=== PATIENT | female | born 1950 | race Caucasian/White ===

== ENCOUNTER 2016-09-28 13:40 | Day surgery (SDC) | payer MEDICARE ==
--- NOTE | 2016-09-24 16:33 | HP ---
ADMITTING HISTORY AND PHYSICAL: DATE OF ADMISSION: 09/28/16 AGE: 66 years, female. ADMITTING DIAGNOSES: 1. Left flank pain. 2. Hematuria. 3. Left renal calculi. PLANNED PROCEDURES: Left stent insertion and shock wave lithotripsy of left renal calculi. SURGEON: Dr. Mcnair. ADMITTING HISTORY AND PHYSICAL: Katie Nieves is a 66-year-old lady with a history of recurrent renal calculi. She has had episodic left flank pain and gross hematuria and an ultrasound in my office had revealed an 1.5-cm calculus in the renal pelvis on the left side with mild caliectasis. In addition, she had small bilateral renal calculi. On the corresponding KUB x-ray, I was only able to visualize small bilateral renal calculi and because of this, the ultrasound was subsequently repeated on September 24 and it still confirms a 1.5 -cm calculus in the renal pelvis on the left side. It is possible that the calculus may be a combination of calcium and uric acid, which would explain why it is clearly visible on ultrasound and not quite as clearly visible on the plain x-ray. PAST MEDICAL HISTORY: Significant for: 1. Recurrent renal calculi. 2. Hypothyroidism. 3. Gastroesophageal reflux. MEDICATIONS ON ADMISSION: 1. Synthroid 150 mcg daily. 2. Ranitidine 1 tablet daily. 3. Vitamins. ALLERGIES AND INTOLERANCES: NYSTATIN and ERYTHROMYCIN. PHYSICAL EXAMINATION GENERAL: A pleasant middle-aged lady. VITAL SIGNS: Blood pressure is 120/80, pulse 88 per minute, oxygen saturation 98% on room air. LUNGS: Clear bilaterally. CARDIOVASCULAR EXAM: Regular rate and rhythm. S1, S2. ABDOMEN: Soft with mild left flank tenderness. IMPRESSION: A 66-year-old lady with an 1.5 cm calculus in the left renal pelvis and two additional left renal calculi. Planned procedure is left stent insertion and shock wave lithotripsy of left renal calculi. I have discussed the procedure in detail with Katie including possible risks of bleeding, infection, incomplete fragmentation. If I am not able to visualize the calculi clearly, then I have also explained to her about the possibility of a need for left ureteroscopy and laser lithotripsy. CC: Dr. Ilgesias * [id number]/[facility] #: [id number] [facility]
[~2016-09-28 13:40] MED LIST: Buffered Lidocaine 1% SYR 3ML* 3 ML/SYR SYRINGE INTRADERM ONE; Gentamicin ADULT (*) 160 MG in NS 0.9% 100 ML* 100 ML IVPB ONE
--- NOTE | 2016-09-28 14:09 | RAD ---
Indication: ESWL LEFT renal calculi. Comparison: September 10, 2016 Technique: Supine abdomen. Report: Subtle suggestion of small bilateral renal stones with dominant 0.4 cm stone at level of the nipple cortex of the RIGHT kidney. No suspicious calcifications along the expected course of the ureters. RIGHT pelvic phlebolith noted. Unremarkable paraspinal soft tissue contours. Gallbladder fossa level surgical clips. IMPRESSION: While conspicuity is limited there is suggestion of small bilateral renal stones without significant interval change.
[2016-09-28] MEDS ORDERED: cefTRIAXone(*) 2 GM ADDV.VIAL IVPB ONE (14:25)
[2016-09-28] MEDS ORDERED: Buffered Lidocaine 1% SYR 3ML* 3 ML/SYR SYRINGE ONE (14:25)
[2016-09-28] MEDS ORDERED: Iohexol 180 (CONTRAST) 10 ML SDV IV ONE (15:19)
[2016-09-28] MEDS ORDERED: fentaNYL* 50 MCG/ML 2 ML VIAL (100 MCG VIAL) ONE (16:21)
[2016-09-28] MEDS ORDERED: Propofol* 10 MG/ML 20 ML BTL IV PUSH ONE (16:21)
[2016-09-28] MEDS ORDERED: Lidocaine 2% MPF* 2 ML VIAL ONE (16:21)
[2016-09-28] MEDS ORDERED: Furosemide IV* 10 MG/ML 2 ML VIAL (20 MG) ONE (17:05)
[2016-09-28] MEDS ORDERED: fentaNYL* 50 MCG/ML 2 ML VIAL (100 MCG VIAL) IV PRN (17:08)
[2016-09-28] MEDS ORDERED: oxyCODONE/Acetamin 5/325 MG* TAB ONE (17:57)
[2016-09-28] MEDS ORDERED: Solifenacin(NF) 5 MG TAB PO ONE (18:00)
[2016-09-28] MEDS ORDERED: Phenazopyridine TAB* 100 MG PO ONE (18:00)
[2016-09-28] MEDS ORDERED: Diatrizoate -DILUTE(CONTRAST) 300 ML BOTTLE BLADDER ONE (18:32)
[2016-09-28 18:48] VITALS: BP 148/77
--- NOTE | 2016-09-29 08:03 | OP ---
DATE OF OPERATION: 09/28/15 [facility] DATE OF : 52 SURGEON: Brooks Mcnair MD ANESTHESIOLOGIST: Dr. Mccrary. ANESTHESIA: General. PRE-OP DIAGNOSES: 1. Left flank pain. 2. Large calculus left renal pelvis (seen on ultrasound, difficult to see on x - ray). POST-OP DIAGNOSES: 1. Left flank pain. 2. Large calculus left renal pelvis (seen on ultrasound, difficult to see on x - ray). OPERATIVE PROCEDURE: 1. Cystoscopy, left retrograde, left stent insertion. 2. Shockwave lithotripsy of left renal calculus. COMPLICATIONS: None. STENT USED: 7-Belarusian stent left ureter. POSTOPERATIVE CONDITION: Stable. INDICATIONS: Katie Nieves is a 66-year-old lady with left flank pain and a history of recurrent renal calculi. She was noted to have a 1.5 cm calculus on ultrasound in the left renal pelvis which is difficult to visualize on x-ray. I suspect that this could have a significant uric acid component, and she is now being brought in for treatment of the calculus. FINDINGS: Approximately 1.5 cm calculus left renal pelvis (noted as filling defect on retrograde pyelogram). DESCRIPTION OF PROCEDURE: After induction of general anesthesia, the patient was placed in dorsal lithotomy position. Sequential compression devices were in place and functioning. Initial cystoscopy revealed a normal-appearing bladder. A guidewire was introduced into the left ureter. Left retrograde pyelogram revealed a large filling defect in the left renal pelvis consistent with calculus. The remainder of the retrograde was unremarkable. A 7-Belarusian stent was introduced and positioned under fluoroscopy with good proximal and distal positioning obtained. A Mehta catheter was placed. Next, contrast was instilled through the Mehta catheter into the bladder and then it refluxed up through the stent to again allow visualization of the calculus in the renal pelvis. Shockwave lithotripsy was commenced, and periodic imaging revealed good localization in the area of the proximal loop of the stent, which was in the renal pelvis. After the initial 300 shocks, there was a brief pause in lithotripsy in an effort to minimize any potential trauma to the kidney. Lithotripsy was then resumed and a total of 1500 shocks were administered. The patient tolerated the procedure satisfactorily, and was transferred back to the recovery area in stable condition. CC: Dr. Abram Iglesias * [id number]/[facility] #: [id number] [facility]
== END 2016-09-28 18:49 | disposition home or self-care (01) ==
LOC: OR 13:40
PROVIDERS: ATTEND Urology
DX: N20.0 Calculus of kidney (principal); R31.9 Hematuria, unspecified; K21.9 Gastro-esophageal reflux disease without esophagitis; E03.9 Hypothyroidism, unspecified
CPT/HCPCS: 74000; A9270-GY; C1876; J0696; J1580; J1940; J2704; J3010

== ENCOUNTER → 2018-05-15 07:29 | Emergency (ER) | payer MEDICARE ==
[~2018-05-15 07:29] MED LIST changes: -Buffered Lidocaine 1% SYR 3ML* 3 ML/SYR SYRINGE INTRADERM ONE; -Gentamicin ADULT (*) 160 MG in NS 0.9% 100 ML* 100 ML IVPB ONE; +NS 0.9% 1000 ML* 1,000 ML IV ONE
[2018-05-15 08:35] LABS: ABS Basophils 0 10^3/ul (0-0.2); ABS Eosinophils 0 10^3/ul (0-0.6); ABS Lymphocytes 1.1 10^3/ul (1.0-4.8); ABS Monocytes 0.5 10^3/ul (0-0.8); ABS Neutrophils 8.7 10^3/ul (1.5-7.7); ABS Nucleated RBC 0 10^3/ul; Eosinophil % 0.3 % (0-6); Hematocrit 40 % (35-47); Hemoglobin 13.6 g/dl (12.0-16.0); Lymphocyte % 10.5 % (25-47); Mean Corpuscular HGB Conc 34 g/dl (31-36); Mean Corpuscular Hemoglobin 30 pg (27-31); Mean Corpuscular Volume 87 fL (80-97); Mean Platelet Volume 7.5 um3 (7.4-10.4); Nucleated Red Blood Cells % 0.2; Platelet Count 295 10^3/ul (150-450); Red Blood Count 4.61 10^6/ul (4.00-5.40); Red Cell Distribution Width 13 % (10.5-15); White Blood Count 10.3 10^3/ul (3.5-10.8)
[2018-05-15 08:49] LABS: INR 0.85 (0.77-1.02)
[2018-05-15 08:51] LABS: EGFR Non-African American 68.6 (>60)
--- NOTE | 2018-05-15 09:48 | ED ---
GI/ HPI - HPI Summary HPI Summary: Patient presents with 1 month of diarrhea. She reports she started her " typical IBS" diarrhea around April 12 (goes in waves - she'll have GERD for 2 weeks then sx move to her lower GI tract and she'll have diarrhea for 2 weeks). Diarrhea worsened 2 weeks later when she started Malarone which she started for her trop to [place] (went to [facility] from April 26 - May 10). Reports she took immodium about 6 times while on her trip and this seemed to help. Since she returned, diarrhea was better when she stopped Malarone but last night had 6 bouts of persistent/recurrent diarrhea about 1 hour apart. She has been trying to stay hydrated and reports she's been hungry. Has mild ab discomfort w/ cramping preceding her diarrhea and relief after going. Denies hematochezia, mucous stools, melena and no fever, chills, N/V, chest pain, shortness, of breath, back pain/flank pain or urinary sx. She's here d/t the increase in frequency of BM's last night. Admits she was exposed to a few folks w/ fever and chills while in [facility] but no one that stood out as being particularly ill. She was not in a region of Ebola outbreak and denies use of anbx. - History of Current Complaint Chief Complaint: EDNauseaVomitDiarrh Time Seen by Provider: 05/15/18 08:09 Stated Complaint: DIARRHEA Hx Obtained From: Patient, Family/Ward Service Supervisor - Pain Intensity: 0 - Allergy/Home Medications Allergies/Adverse Reactions: Allergies Allergy/AdvReac Type Severity Reaction Status Date / Time codeine Allergy Vomiting Verified 05/15/18 07:39 erythromycin base Allergy Vomiting Verified 05/15/18 07:39 hydrochlorothiazide Allergy Leg Cramps Verified 05/15/18 07:39 miconazole Allergy Unknown Verified 05/15/18 07:39 Reaction Details Pyqtych-Vwo-Rer Reductase Allergy Leg Cramps Verified 05/15/18 07:39 Inhibitor Home Medications: Home Medications Potassium Citrate [Urocit-K] 20 meq PO BID 05/15/18 [History Confirmed 05/15/18] PMH/Surg Hx/FS Hx/Imm Hx Previously Healthy: No - diarrhea x 1 month Endocrine/Hematology History: Reports: Hx Thyroid Disease - HYPOTHYROID Cardiovascular History: Reports: Hx Hypertension - NO MEDICATION FOR Respiratory History: Reports: Hx Sleep Apnea - NO MACHINE GI History: Reports: Hx Gastroesophageal Reflux Disease - RANITIDINE, Hx Irritable Bowel - GERD alternating w/ diarrhea - no meds History: Reports: Hx Kidney Stones - HISTORY OF AND CURRENTLY Musculoskeletal History: Reports: Other Musculoskeletal History Sensory History: Reports: Hx Contacts or Glasses - READING GLASSES Denies: Hx Hearing Aid Opthamlomology History: Reports: Hx Contacts or Glasses - READING GLASSES Neurological History: Reports: Hx Headaches - IN THE PAST, Other Neuro Impairments/Disorders - BENIGN ESSENTIAL TREMOR- HEAD - Cancer History Hx Chemotherapy: No Hx Radiation Therapy: No - Surgical History Surgery Procedure, Year, and Place: 1973-[facility]CEPS DELIVERY- [facility]. 1977-3 IMPACTED MOLARS REMOVED- OFFICE. [place] [facility] [place] [place]- [place]ICE. ESWL for kidney stones. STENT INSERTION-2014 Hx Anesthesia Reactions: No - Immunization History Immunizations Up to Date: No - typhoid is not UTD- all others are UTD Infectious Disease History: No Infectious Disease History: Reports: Traveled Outside the [place] in Last 30 Days - [facility] Apr 26 - May 10 2018 Denies: History Other Infectious Disease - Social History Occupation: Retired Lives: With Family Alcohol Use: None Hx Substance Use: No Substance Use Type: Reports: None Hx Tobacco Use: No Smoking Status (MU): Never Smoked Tobacco Review of Systems Constitutional: Negative Negative: Fever, Chills, Fatigue Cardiovascular: Negative Negative: Chest Pain Respiratory: Negative Negative: Shortness Of Breath Positive: Diarrhea. Negative: Abdominal Pain, Vomiting, Nausea Genitourinary: Negative Musculoskeletal: Negative Skin: Negative Neurological: Negative Psychological: Normal All Other Systems Reviewed And Are Negative: Yes Physical Exam Triage Information Reviewed: Yes Vital Signs On Initial Exam: Initial Vitals Temp Pulse Resp BP Pulse Ox 98 F 86 16 138/93 97 05/15/18 07:42 05/15/18 07:42 05/15/18 07:42 05/15/18 07:42 05/15/18 07:42 Vital Signs Reviewed: Yes Appearance: Positive: Well-Appearing, No Pain Distress, Obese Skin: Positive: Warm, Skin Color Reflects Adequate Perfusion, Dry Head/Face: Positive: Normal Head/Face Inspection Eyes: Positive: Normal, EOMI, Conjunctiva Clear - anicteric sclera ENT: Positive: Normal ENT inspection, Hearing grossly normal, Pharynx normal - mucosa moist Neck: Positive: Supple, Nontender Respiratory/Lung Sounds: Positive: Clear to Auscultation, Breath Sounds Present. Negative: Rales, Rhonchi, Wheezes Cardiovascular: Positive: Normal, RRR, S1, S2 Abdomen Description: Positive: Nontender, No Organomegaly, Soft Bowel Sounds: Positive: Present Pelvic Exam: Positive: Other - deferred Musculoskeletal: Positive: Normal, Strength/ROM Intact Neurological: Positive: Normal, Sensory/Motor Intact, Alert, Oriented to Person Place, Time, CN Intact II-III Psychiatric: Positive: Normal - concerned but calm and pleasant Diagnostics - Vital Signs Vital Signs Temp Pulse Resp BP Pulse Ox 05/15/18 07:42 98 F 86 16 138/93 97 - Laboratory Lab Results: Lab Results 05/15/18 05/15/18 05/15/18 Range/Units 08:25 08:25 08:25 WBC 10.3 (3.5-10.8) 10^3/ul RBC 4.61 (4.00-5.40) 10^6/ul Hgb 13.6 (12.0-16.0) g/dl Hct 40 (35-47) % MCV 87 (80-97) fL MCH 30 (27-31) pg MCHC 34 (31-36) g/dl RDW 13 (10.5-15) % Plt Count 295 (150-450) 10^3/ul MPV 7.5 (7.4-10.4) um3 Neut % (Auto) 84.0 H (38-83) % Lymph % (Auto) 10.5 L (25-47) % [place] % (Auto) 4.7 (0-7) % Eos % (Auto) 0.3 (0-6) % Baso % (Auto) 0.5 (0-2) % Absolute Neuts (auto) 8.7 H (1.5-7.7) 10^3/ul Absolute Lymphs (auto) 1.1 (1.0-4.8) 10^3/ul Absolute Monos (auto) 0.5 (0-0.8) 10^3/ul Absolute Eos (auto) 0 (0-0.6) 10^3/ul Absolute Basos (auto) 0 (0-0.2) 10^3/ul Absolute Nucleated RBC 0 10^3/ul Nucleated RBC % 0.2 INR (Anticoag Therapy) 0.85 (0.77-1.02) APTT 28.8 (26.0-36.3) seconds Sodium 139 (135-145) mmol/L Potassium 4.2 (3.5-5.0) mmol/L Chloride 105 (101-111) mmol/L Carbon Dioxide 26 (22-32) mmol/L Anion Gap 8 (2-11) mmol/L BUN 15 (6-24) mg/dL Creatinine 0.83 (0.51-0.95) mg/dL Est GFR ( Amer) 83.0 (>60) Est GFR (Non-Af Amer) 68.6 (>60) BUN/Creatinine Ratio 18.1 (8-20) Glucose 118 H (70-100) mg/dL Lactic Acid (0.5-2.0) mmol/L Calcium 9.4 (8.6-10.3) mg/dL Magnesium 1.8 L (1.9-2.7) mg/dL Total Bilirubin 0.60 (0.2-1.0) mg/dL AST 25 (13-39) U/L ALT 29 (7-52) U/L Alkaline Phosphatase 67 (34-104) U/L C-Reactive Protein 20.30 H (<8.01) mg/L Total Protein 7.2 (6.4-8.9) g/dL Albumin 4.2 (3.2-5.2) g/dL Globulin 3.0 (2-4) g/dL Albumin/Globulin Ratio 1.4 (1-3) Lipase 14 (11.0-82.0) U/L 05/15/18 Range/Units 08:25 WBC (3.5-10.8) 10^3/ul RBC (4.00-5.40) 10^6/ul Hgb (12.0-16.0) g/dl Hct (35-47) % MCV (80-97) fL MCH (27-31) pg MCHC (31-36) g/dl RDW (10.5-15) % Plt Count (150-450) 10^3/ul MPV (7.4-10.4) um3 Neut % (Auto) (38-83) % Lymph % (Auto) (25-47) % [place] % (Auto) (0-7) % Eos % (Auto) (0-6) % Baso % (Auto) (0-2) % Absolute Neuts (auto) (1.5-7.7) 10^3/ul Absolute Lymphs (auto) (1.0-4.8) 10^3/ul Absolute Monos (auto) (0-0.8) 10^3/ul Absolute Eos (auto) (0-0.6) 10^3/ul Absolute Basos (auto) (0-0.2) 10^3/ul Absolute Nucleated RBC 10^3/ul Nucleated RBC % INR (Anticoag Therapy) (0.77-1.02) APTT (26.0-36.3) seconds Sodium (135-145) mmol/L Potassium (3.5-5.0) mmol/L Chloride (101-111) mmol/L Carbon Dioxide (22-32) mmol/L Anion Gap (2-11) mmol/L BUN (6-24) mg/dL Creatinine (0.51-0.95) mg/dL Est GFR ( Amer) (>60) Est GFR (Non-Af Amer) (>60) BUN/Creatinine Ratio (8-20) Glucose (70-100) mg/dL Lactic Acid 1.7 (0.5-2.0) mmol/L Calcium (8.6-10.3) mg/dL Magnesium (1.9-2.7) mg/dL Total Bilirubin (0.2-1.0) mg/dL AST (13-39) U/L ALT (7-52) U/L Alkaline Phosphatase (34-104) U/L C-Reactive Protein (<8.01) mg/L Total Protein (6.4-8.9) g/dL Albumin (3.2-5.2) g/dL Globulin (2-4) g/dL Albumin/Globulin Ratio (1-3) Lipase (11.0-82.0) U/L Result Diagrams: 05/15/18 08:25 05/15/18 08:25 Lab Statement: Any lab studies that have been ordered have been reviewed, and results considered in the medical decision making process. Re-Evaluation - Re-Evaluation First Eval Change: Improved - pt received 1 LNS and was able to tolerate a tuna sandwhich w / PO fluids - no nausea or vomiting. She was able to provide a stool sample while here but took a while. GIGU Course/Dx - Course Course Of Treatment: CHronic diarrhea which sounds like it started as IBS and exacerbated by malarone but may have a new element of infection based on recent travels and change in frequency last night. Discussed options to start anbx for potential ova/parasite infection however given her IBS and sensitivities to anbx re: this issue, will wait for final dx from stool in 2 days. Also discussed possible danger of taking Imodium as she may retain infectious material. She will continue to stay hydrated and try a BRAT diet. Discussed danger signs and symptoms she reports she will return to the ED if these present. Otherwise will follow up with a phone call in 2 days (or sooner) with results. Although patient's labs appear to be within normal limits and she physically does not appear dehydrated, given the fact that she had 6 episodes of frequent diarrhea prior to arrival, we offered IV fluids and she accepted. She reports feeling a little better after these and was able to tolerate food and liquids by mouth prior to departure. - Diagnoses Provider Diagnoses: Diarrhea Discharge - Sign-Out/Discharge Documenting (check all that apply): Patient Departure - Discharge Plan Condition: Stable Disposition: HOME Patient Education Materials: Dehydration (ED), Acute Diarrhea (ED) Referrals: Ankit Isabel MD [Primary Care Provider] - Additional Instructions: Avoid stimulants (ie. caffeine from soda, coffee, tea, chocolate, etc - nicotine , alcohol, etc) Stay hydrated - water, joe renny, gatorade, apple juice, etc Try BRAT diet (bananas, rice, applesauce, toast) *Follow-up with PCP - will call with stool cultures results if positive *If in the meantime you develop fever, chills, headache, vomiting, abdominal pain, return to the ED - Billing Disposition and Condition Condition: STABLE Disposition: Home
[2018-05-15 12:32] VITALS: BP 141/77
--- NOTE | 2018-05-16 08:33 | ED ---
Progress - Progress Note Progress Note: Patient's stool occult blood results reveal positive findings. Given her recent history of excessive diarrhea, she may have colitis. Her vitals as well as her H&H are stable. We'll await for final culture results should be back today or tomorrow to better identify a potential source of these symptoms. If everything is negative, without wheeze contact the patient to notify her of these findings and have her follow-up for further investigation as needed (ie. CT scan, colonoscopy, repeat labs, etc) Re-Evaluation - Re-Evaluation First Eval Change: Improved - pt received 1 LNS and was able to tolerate a tuna sandwhich w / PO fluids - no nausea or vomiting. She was able to provide a stool sample while here but took a while. Course/Dx - Course Course Of Treatment: CHronic diarrhea which sounds like it started as IBS and exacerbated by malarone but may have a new element of infection based on recent travels and change in frequency last night. Discussed options to start anbx for potential ova/parasite infection however given her IBS and sensitivities to anbx re: this issue, will wait for final dx from stool in 2 days. Also discussed possible danger of taking Imodium as she may retain infectious material. She will continue to stay hydrated and try a BRAT diet. Discussed danger signs and symptoms she reports she will return to the ED if these present. Otherwise will follow up with a phone call in 2 days (or sooner) with results. Although patient's labs appear to be within normal limits and she physically does not appear dehydrated, given the fact that she had 6 episodes of frequent diarrhea prior to arrival, we offered IV fluids and she accepted. She reports feeling a little better after these and was able to tolerate food and liquids by mouth prior to departure. - Diagnoses Provider Diagnoses: Diarrhea Discharge - Sign-Out/Discharge Documenting (check all that apply): Post-Discharge Follow Up - Discharge Plan Condition: Stable Disposition: HOME Patient Education Materials: Dehydration (ED), Acute Diarrhea (ED) Referrals: Ankit Isabel MD [Primary Care Provider] - Additional Instructions: Avoid stimulants (ie. caffeine from soda, coffee, tea, chocolate, etc - nicotine , alcohol, etc) Stay hydrated - water, joe renny, gatorade, apple juice, etc Try BRAT diet (bananas, rice, applesauce, toast) *Follow-up with PCP - will call with stool cultures results if positive *If in the meantime you develop fever, chills, headache, vomiting, abdominal pain, return to the ED - Billing Disposition and Condition Condition: STABLE Disposition: Home
== END | disposition home or self-care (01) ==
LOC: ED 07:29
DX: R19.7 Diarrhea, unspecified (principal)
CPT/HCPCS: 36415; 80053; 82272; 83605; 83690; 83735; 85025; 85610; 85730; 86140; 87045; 87046; 87177; 87209; 87328; 87329; 87493; 87899

== ENCOUNTER 2018-05-25 10:10 | Emergency (ER) | payer MEDICARE ==
[2018-05-25 10:24] VITALS: BP 158/84
--- NOTE | 2018-05-25 10:42 | UC ---
Lower Extremity/Ankle HPI - HPI Summary HPI Summary: This pt is a 68 y/o female presenting to [facility] c/o left knee pain s/p injury 1 month ago. Pt reports she was in [place] about 1 month ago stepping out of a tall van when she twisted her left knee. Since then she notes intermittent pain on her left knee. Her pain is aggravated with ambulation and alleviated with rest. Denies any other injuries. She currently rates her pain 3 to 4 out of 10 in severity. - History of Current Complaint Chief Complaint: UCLowerExtremity Stated Complaint: KNEE INJURY Time Seen by Provider: 05/25/18 10:27 Hx Obtained From: Patient Onset/Duration: Lasting Weeks, Still Present Severity Currently: Moderate Pain Intensity: 4 Pain Scale Used: 0-10 Numeric Aggravating Factor(s): Ambulation Alleviating Factor(s): Rest Able to Bear Weight: Yes - Allergies/Home Medications Allergies/Adverse Reactions: Allergies Allergy/AdvReac Type Severity Reaction Status Date / Time codeine Allergy Vomiting Verified 05/25/18 10:24 erythromycin base Allergy Vomiting Verified 05/25/18 10:24 hydrochlorothiazide Allergy Leg Cramps Verified 05/25/18 10:24 miconazole Allergy Unknown Verified 05/25/18 10:24 Reaction Details Toydpdm-Ydi-Wqu Reductase Allergy Leg Cramps Verified 05/25/18 10:24 Inhibitor PMH/Surg Hx/FS Hx/Imm Hx Endocrine History: Thyroid Disease - Hypothyroid Cardiovascular History: Hypertension Other Cardiovascular History: HLD - Surgical History Surgical History: Yes Surgery Procedure, Year, and Place: 1973-FORCEPS DELIVERY- [facility]. 1977-3 IMPACTED MOLARS REMOVED- OFFICE. 1983-TUBAL LIGATION- [facility] [place]. 1998- LAP CHOLECYSTECTOMY-[facility] [place]. 2003-[facility]- OFFICE. [facility] for kidney stones. STENT INSERTION-2014 - Family History Known Family History: Negative: Cardiac Disease, Hypertension, Diabetes - Social History Alcohol Use: Occasionally Substance Use Type: None Smoking Status (MU): Never Smoked Tobacco Review of Systems Constitutional: Negative Skin: Negative Eyes: Negative ENT: Negative Respiratory: Negative Cardiovascular: Negative Gastrointestinal: Negative Genitourinary: Negative Motor: Negative Neurovascular: Negative Musculoskeletal: Other: - POS: Left knee pain Neurological: Negative Psychological: Negative All Other Systems Reviewed And Are Negative: Yes Physical Exam - Summary Physical Exam Summary: VITAL SIGNS: Reviewed. GENERAL: Patient is a well-developed and nourished female who is lying comfortable in the stretcher. Patient is not in any acute respiratory distress. HEAD AND FACE: Normocephalic EYES: PERRLA, EOMI x 2. EARS: Hearing grossly intact. MOUTH: Oropharynx within normal limits. NECK: Supple, trachea is midline, no adenopathy, no JVD, no carotid bruit. CHEST: Symmetric, no tenderness at palpation LUNGS: Clear to auscultation bilaterally. No wheezing or crackles. CVS: Regular rate and rhythm, S1 and S2 present, no murmurs or gallops appreciated. ABDOMEN: Soft, non-tender. Bowel sounds are normal. No abdominal abnormal pulsations. EXTREMITIES: Full ROM in all major joints, no edema, no cyanosis or clubbing. LLE: tenderness in the anterior aspect of the knee ligament. NEURO: Alert and oriented x 3. No acute neurological deficits. Speech is normal and follows commands. SKIN: Dry and warm Triage Information Reviewed: Yes Vital Signs: Initial Vital Signs Temp 97.8 F 05/25/18 10:19 Pulse 79 05/25/18 10:19 Resp 18 05/25/18 10:19 BP 158/84 05/25/18 10:19 Pulse Ox 100 05/25/18 10:19 Vital Signs Reviewed: Yes Diagnostics - Radiology Left knee XR Xray Interpretation: No Acute Changes - IMPRESSION: No acute osseous injury. If symptoms persist, recommend repeat imaging. Dr. Cano has reviewed this report. Radiology Interpretation Completed By: Radiologist Lower Extremity Course/Dx - Course Course Of Treatment: Pt is a 68 y/o female presenting to [facility] c/o left knee pain s/p injury 1 month ago. Pt reports she was in [place] about 1 month ago stepping out of a tall van when she twisted her left knee. Since then she notes intermittent pain on her left knee. Her pain is aggravated with ambulation and alleviated with rest. Denies any other injuries. She currently rates her pain 3 to 4 out of 10 in severity. Left knee XR shows no acute osseous injury. If symptoms persist, recommend repeat imaging. I believe that the patient has a meniscus or ligament injury. Therefore the patient was placed in a knee immobilizer. She was advised to take ibuprofen or Tylenol for pain and she will follow up with an orthopedic doctor. Patient understands and agrees with the plan. She is hemodynamically stable alert oriented 3. The patient was found to have increased blood pressure in UC. The patient will follow up with PCP for better control of BP. - Differential Dx/Diagnosis Provider Diagnoses: Left knee pain Discharge - Sign-Out/Discharge Documenting (check all that apply): Patient Departure - Discharge home All imaging exams completed and their final reports reviewed: Yes - Discharge Plan Condition: Stable Disposition: HOME Patient Education Materials: Knee Pain (ED) Referrals: Ankit Isabel MD [Primary Care Provider] - Eb Bansal MD [Medical Doctor] - Additional Instructions: Follow up with orthopedist, Dr. Bansal. FOLLOW UP WITH YOUR PRIMARY CARE PROVIDER WITHIN ONE WEEK FOR HIGH BLOOD PRESSURE NOTED TODAY. RETURN TO URGENT CARE OR THE ED FOR ANY WORSENING OR NEW SYMPTOMS. - Billing Disposition and Condition Condition: STABLE Disposition: Home - Attestation Statements Document Initiated by Kellieibe: Yes Documenting Scribe: Shobha Chou Provider For Whom Scribe is Documenting (Include Credential): Coleman Cano MD Scribe Attestation: Shobha Marin scribed for Coleman Cano MD on 05/25/18 at 1417. Scribe Documentation Reviewed: Yes Provider Attestation: The documentation as recorded by the Shobha gallagher accurately reflects the service I personally performed and the decisions made by , Coleman Cano MD
--- NOTE | 2018-05-25 11:02 | RAD ---
HISTORY: knee pain COMPARISONS: None VIEWS: 4 , Frontal, lateral, axial, and oblique views of the left knee FINDINGS: BONE DENSITY: Normal. BONES: There is no displaced fracture. JOINTS: There is no arthropathy. There is no suprapatellar joint effusion or lipohemarthrosis. ALIGNMENT: There is no dislocation. SOFT TISSUES: Unremarkable. OTHER FINDINGS: None. IMPRESSION: NO ACUTE OSSEOUS INJURY. IF SYMPTOMS PERSIST, RECOMMEND REPEAT IMAGING.
== END 2018-05-25 11:23 | disposition home or self-care (01) ==
LOC: UCEAST 10:10
DX: M25.562 Pain in left knee (principal); Z88.1 Allergy status to other antibiotic agents; Z88.5 Allergy status to narcotic agent; Z88.8 Allergy status to other drugs, medicaments and biological substances
CPT/HCPCS: 99211; G0463

== ENCOUNTER 2018-08-09 05:56 | Day surgery (SDC) | payer MEDICARE ==
--- NOTE | 2018-08-03 15:50 | HP ---
HISTORY AND PHYSICAL: DATE OF ADMISSION: 08/09/18 Arthroscopic surgery, left knee, [facility] [place], 08/09/18. CHIEF COMPLAINT: Left knee anteromedial pain. HISTORY OF PRESENT ILLNESS: She has had some problems with this knee since she took step out of a van earlier this year and landed poorly on her left foot injuring her knee and then it was hurt also when she was squatting getting under a mosquito netting as well. Present illness, as above and she recently had an MRI scan showing a medial meniscal tear and some patellar degenerative changes. The left knee feels like she cannot move it at times and "paralyzed." It is aggravated with stairs, especially down. She has had difficulty and has to be careful with pivoting and at times, it feels great, but at other times, it feels very poorly and it is keeping her from doing all of the activities that she would like to do. We spoke in the office and she certainly notes it is okay to proceed with nonoperative care, but because the knee has been so bothersome, I have recommended the arthroscopic surgery. PAST MEDICAL HISTORY: She has not had a heart attack. She has not had chest pain. She does have hypertension. She has had headaches and migraines. No cancers. No bleeding tendencies. Her last EKG was normal 5 years ago. [place], she knows that she can walk up 158 steps with some shortness of breath and she recovers and there is no chest pain. No history of DVT or pulmonary embolism. PAST SURGICAL HISTORY: LASIK eye surgery, kidney stones with Dr. Mcnair including stenting, tubal ligation, cholecystectomy. ALLERGIES: To LIPITOR, LISINOPRIL, HYDROCHLOROTHIAZIDE, CODEINE, ERYTHROMYCIN, and MICONAZOLE. She knows she is okay for Ancef. FAMILY HISTORY: Positive for cardiac and cancer. Negative for diabetes. SOCIAL HISTORY: Lives with her spouse. No smoking. Two alcoholic beverages per year. PHYSICAL EXAMINATION GENERAL: She is well nourished, well developed, not acutely distressed. VITAL SIGNS: 62 inches in height, 171 pounds, pulse is 91, blood pressure 152/ 90, the temp is 97.3. LUNGS: Clear bilaterally. HEENT: The head is NC/AT. LUNGS: Clear bilaterally. HEART: Regular S1, S2 normal. Slight systolic murmur. No gallop. ABDOMEN: Soft and nontender. I do not appreciate organomegaly. EXTREMITIES: Left knee has tenderness of the medial joint line with stable MCL , ACL, Guillermo and posterior drawer. The extension 0, flexion 120 degrees. No marked pain with rotational testing. NEURO: The cranial nerves are grossly intact. IMAGING: The MRI scan shows medial meniscal tearing and patellar degenerative changes. IMPRESSION: Left knee medial meniscal tear. PLAN: Plan is left knee arthroscopic surgery. Her options for care and risks and complications of surgical care were reviewed with her in the office by me and her questions were answered. [id number] #: [id number] JOSE
[~2018-08-09 05:56] MED LIST changes: +Buffered Lidocaine 0.9% SYRIN* 5 ML/SYR SYRINGE INTRADERM ONE; -NS 0.9% 1000 ML* 1,000 ML IV ONE
[2018-08-09] MEDS ORDERED: Dexamethasone IV* 4 MG/ML 1 ML (4 MG) IV SLOW PU ONE (06:00)
[2018-08-09] MEDS ORDERED: Dexamethasone IV* 4 MG/ML 1 ML (4 MG) ONE (06:14)
[2018-08-09] MEDS ORDERED: ceFAZolin 2 GM PREMIX in ORs 2 GM/50 ML BAG IVPB ONE (06:14)
[2018-08-09] MEDS ORDERED: Bupivacaine 0.5% W/EPI SDV* 30 ML VIAL ONE (06:54)
[2018-08-09] MEDS ORDERED: Midazolam* 1 MG/ML 2 ML VIAL (2 MG) ONE (07:08)
[2018-08-09] MEDS ORDERED: fentaNYL* 50 MCG/ML 2 ML VIAL (100 MCG VIAL) ONE ×3 (07:08→07:51)
[2018-08-09] MEDS ORDERED: fentaNYL* 50 MCG/ML 2 ML VIAL (100 MCG VIAL) IV PRN (07:28)
[2018-08-09] MEDS ORDERED: Naloxone* 0.4 MG/ML 1 ML VIAL IV PRN (07:28)
[2018-08-09] MEDS ORDERED: PROCHLORPERAZINE INJ 5 MG/ML 2 ML VIAL IV PRN (07:28)
[2018-08-09] MEDS ORDERED: oxyCODONE/Acetamin 5/325 MG* TAB PO PRN (07:28)
[2018-08-09] MEDS ORDERED: HYDROcodone/ACETAMIN 5-325 MG* 1 TAB PO PRN (07:28)
[2018-08-09] MEDS ORDERED: Lidocaine 2% PF * 5 ML VIAL ONE (07:38)
[2018-08-09] MEDS ORDERED: Propofol* 10 MG/ML 20 ML BTL ONE (07:38)
[2018-08-09] MEDS ORDERED: Ketorolac INJ* 30 MG/ML 1 ML VIAL ONE (07:47)
[2018-08-09] MEDS ORDERED: Ondansetron INJ* 2 MG/ML VIAL ONE (08:27)
[2018-08-09] MEDS ORDERED: oxyCODONE/Acetamin 5/325 MG* TAB ONE (09:48)
[2018-08-09 11:03] VITALS: BP 131/78
--- NOTE | 2018-08-09 13:12 | OP ---
CC: Dr. Isabel * DATE OF OPERATION: 08/09/18 - SDS DATE OF : 52 SURGICAL CARE: Left knee. SURGEON: Jeronimo Oro MD ASSISTANTS: Roxanna Fisher, physical furniture removalist's assistant international first officer. ANESTHESIOLOGIST: Dr. Malena Salinas. ANESTHESIA: LMA general. PRE-OP DIAGNOSIS: Left knee medial meniscal tear and some patellar arthritis. POST-OP DIAGNOSIS: Left knee medial meniscal tear and some patellar arthritis including chondromalacia patella. OPERATIVE PROCEDURE: Left knee arthroscopic partial medial meniscectomy and patellar chondroplasty. OPERATIVE INDICATION: Persistent left knee medial discomfort with mechanical symptoms and an MRI scan showing medial meniscal tear that was complex. COMPLICATIONS: There were no complications. DRAINS: There were no drains. BLOOD LOSS: 40 mL. REPLACEMENT: Crystalloid fluids. DESCRIPTION OF PROCEDURE: The patient was brought to the operating room and placed on the operating room table in a supine position. Following the administration of the anesthetic, the patient was positioned on the table for left knee arthroscopic surgery. The left proximal thigh was wrapped with tourniquet and the left leg was given a preliminary chlorhexidine prep at the knee and then, the final prep from the tourniquet to the foot. After prepping, draping, and sealing off, we did our universal protocol timeout confirming Katie Nieves and a plan for left knee arthroscopic surgery, we all agreed and we proceeded. The leg was exsanguinated. Tourniquet was elevated to 275. The knee was set up for arthroscopy with the arthroscope lateral to the patellar tendon, probe and operating instruments from medial to the patellar tendon and an inflow catheter superomedial to the patella. The arthroscopic portals on either side of the patellar tendon were exchanged during the procedure to complete the surgical care of the patella and the medial meniscus. The survey of the joint showed that the patient had clear straw-colored synovial fluid that did have some debris within it. The patellofemoral joint, the medial patella had chondromalacia patella with crabmeat fibrillations, these were shaved off. Lateral patella with some quite good condition. The medial and lateral gutters had some synovitis and were essentially clear. Lateral femoral condyle, popliteus, lateral tibial plateau, lateral meniscus in satisfactory condition. The ligamentum mucosum was excised to complete the surgical care of the medial meniscus. The ACL appeared to be in satisfactory condition. The medial femoral condyle had some cartilage loss and some small flaps of cartilage , they were shaved a little bit. The medial tibial plateau a little yellowing, but overall satisfactory condition. The medial meniscus was torn mid and posteriorly with some flaps. Once the pathologies were evident, we proceeded with the chondroplasty of the patella and then the partial medial meniscectomy. The medial meniscectomy was completed with the knee on a valgus stress between 0 and 30 degrees of flexion with some external rotation of the foot. The care was taken not to injure the adjacent condyle and plateau during the surgical care and surgery was accomplished with a curved shaver and straight and up biting baskets. The anterior portion was done with the shaver from the lateral portal. The shaver went through the intercondylar notch from the lateral portal to get more posterior. Once the surgical care was completed, the final photographs were obtained, the tourniquet was deflated, the knee was irrigated with another 6 L of saline irrigation solution, then emptied, then instilled with Marcaine 0.5% with epinephrine 30 mL and the skin portal was closed with interrupted 3-0 Surgipro and a dressing applied after washing and drying of Betadine-soaked release, sterile gauze, sterile Webril, cryotherapy cuff, ABD pads and then a 6-inch Shashi bandage loosely applied. The patient was returned to the recovery room in stable and satisfactory condition, having tolerated the procedure very well. [id number] #: [id number] JOSE
== END 2018-08-09 11:30 | disposition home or self-care (01) ==
LOC: OR 05:56
PROVIDERS: ATTEND Orthopaedic Surgery
DX: S83.242A Other tear of medial meniscus, current injury, left knee, initial encounter (principal); M17.12 Unilateral primary osteoarthritis, left knee; I10 Essential (primary) hypertension; Z88.5 Allergy status to narcotic agent; Z88.8 Allergy status to other drugs, medicaments and biological substances; X58.XXXA Exposure to other specified factors, initial encounter
CPT/HCPCS: 88304; A9270-GY; J0690; J1100; J1885; J2250; J2405; J2704; J3010

== ENCOUNTER 2021-05-09 11:49 | Observation (INO) ==
[~2021-05-09 11:49] MED LIST changes: -Buffered Lidocaine 0.9% SYRIN* 5 ML/SYR SYRINGE INTRADERM ONE; +Buffered Lidocaine 1% SYRIN 1 ml INTRADERM ONE; +Lactated Ringers 1000 ml BAG 1,000 ML IV SCH
[2021-05-09] MEDS ORDERED: ceFAZolin 2 GM in NS PREMIX 2 GM/100 ML BAG IVPB ONE (12:10)
[2021-05-09] MEDS ORDERED: Buffered Lidocaine 1% SYRIN 1 ml INTRADERM ONE (12:25)
[2021-05-09] MEDS ORDERED: Midazolam 2 mg/2 ml VIAL 1 mg/ml 2 ml VIAL (2 mg) ONE (13:13)
[2021-05-09] MEDS ORDERED: Lidocaine 1% MPF 5 ML VIAL ONE (13:34)
[2021-05-09] MEDS ORDERED: ROPIVACAINE 5 MG/ML 30 ML BTL (0.5%) ONE ×2 (13:34→14:43)
[2021-05-09] MEDS ORDERED: Propofol 10 mg/ml 100 ML BTL 100 ML ONE (15:04)
[2021-05-09 15:26] LABS: ALT 40 U/L (7-52); AST 24 U/L (13-39); Albumin 4.3 g/dL (3.2-5.2); Albumin/Globulin Ratio 1.6 (1-3); Alkaline Phosphatase 63 U/L (35-149); Globulin 2.7 g/dL (2-4)
[2021-05-09] MEDS ORDERED: DiMENhydriNATE IV 50 mg/ml 1 ml VIAL IV PUSH PRN (15:34)
[2021-05-09] MEDS ORDERED: Acetaminophen IV 1 GM/100ML 100 ML IV PRN (15:34)
[2021-05-09] MEDS ORDERED: Naloxone 0.4 mg VIAL 0.4 mg/ml 1 ml VIAL IV PRN (15:34)
[2021-05-09] MEDS ORDERED: Ondansetron 4 mg VIAL 2 MG/ML 2 ml VIAL IV PRN ×2 (15:34→16:36)
[2021-05-09] MEDS ORDERED: Phenylephrine 40 mcg/mL 10mL (400mcg) SYRINGE ONE (15:50)
[2021-05-09] MEDS ORDERED: Ondansetron ODT 4 mg TAB 4 MG TAB PO PRN (16:36)
[2021-05-09] MEDS ORDERED: Magnesium Hydroxide LIQ 30 ML UDC PO PRN (16:36)
[2021-05-09] MEDS ORDERED: diPHENhydraMINE IV 50 MG/ML 1 ml VIAL (BENADRYL) IV PRN (16:36)
[2021-05-09] MEDS ORDERED: diPHENhydraMINE 25 mg TAB PO PRN (16:36)
[2021-05-09] MEDS ORDERED: Lactulose 30 ml UDC PO PRN (16:36)
[2021-05-09] MEDS ORDERED: Lactated Ringers 1000 ml BAG 1,000 ML IV SCH (17:00)
[2021-05-09] MEDS ORDERED: fentaNYL 100 mcg/2 ml 50 MCG/ML VIAL ONE ×2 (17:14→18:05)
[2021-05-09] MEDS ORDERED: Acetaminophen IV 1 GM/100ML 100 ML IV ONE (17:50)
[2021-05-09] MEDS ORDERED: HYDROmorphone 1 MG/1 ML SYRINGE ONE (17:50)
[2021-05-09] MEDS: HYDROmorphone 1 MG/1 ML SYRINGE IV PRN ×3 (17:54→18:08)
[2021-05-09] MEDS: fentaNYL 100 mcg/2 ml 50 MCG/ML VIAL IV PRN ×2 (18:06→18:23)
[2021-05-09] MEDS: Morphine 2 MG/ML SYRINGE IV PRN (19:57)
[2021-05-09] MEDS: Magnesium Hydroxide LIQ 30 ML UDC PO SCH (21:18)
[2021-05-09] MEDS: POTASSIUM CITRATE 10 MEQ PO SCH (21:34)
[2021-05-09] MEDS: ceFAZolin 1 GM ADVAN 1 GM in NS 0.9% 50 ML 50 ML IVPB SCH (23:51)
[2021-05-10] MEDS: Morphine 2 MG/ML SYRINGE IV PRN (00:05)
[2021-05-10 06:36] LABS: Hematocrit 30 % (35-47); Hemoglobin 10.3 g/dL (12.0-16.0); Mean Platelet Volume 8.1 fL (7.4-10.4); Platelet Count 278 10^3/uL (150-450)
[2021-05-10 07:01] LABS: Calcium 8.6 mg/dL (8.6-10.3); EGFR Non-African American 75.2 (>60); Potassium 4.1 mmol/L (3.5-5.0)
[2021-05-10] MEDS: ceFAZolin 1 GM ADVAN 1 GM in NS 0.9% 50 ML 50 ML IVPB SCH ×2 (08:37→16:05)
[2021-05-10] MEDS: Magnesium Hydroxide LIQ 30 ML UDC PO SCH ×2 (08:40→22:24)
[2021-05-10] MEDS: POTASSIUM CITRATE 10 MEQ PO SCH ×2 (08:40→19:51)
[2021-05-10] MEDS: Vitamin THERAPEUTIC TAB PO SCH (08:40)
[2021-05-10] MEDS ORDERED: NS 0.9% 500 ml BAG 500 ML IV ONE (10:27)
[2021-05-11 05:06] LABS: Hematocrit 28 % (35-47); Hemoglobin 9.7 g/dL (12.0-16.0); Mean Platelet Volume 8.1 fL (7.4-10.4); Platelet Count 249 10^3/uL (150-450)
[2021-05-11] MEDS: Magnesium Hydroxide LIQ 30 ML UDC PO SCH (08:40)
[2021-05-11] MEDS: POTASSIUM CITRATE 10 MEQ PO SCH (08:40)
[2021-05-11] MEDS: Vitamin THERAPEUTIC TAB PO SCH (08:40)
[2021-05-11 12:01] VITALS: BP 142/73
== END 2021-05-11 12:58 | disposition home or self-care (01) | DRG 470 ==
LOC: AA 11:49 → INTOOBSV 11:49 → SSU 19:11
PROVIDERS: ADMIT Orthopaedic Surgery Adult Reconstructive Orthopaedic Surgery; ATTEND Orthopaedic Surgery Adult Reconstructive Orthopaedic Surgery